=== PATIENT | male | born 1965 | race Caucasian/White ===

== ENCOUNTER 2022-08-19 16:17 | Emergency (ER) | payer SELFPAY ==
[~2022-08-19] VITALS: Ht 185.4 cm; Wt 70.3 kg
--- NOTE | 2022-08-19 16:37 | NUR ---
BIBSELF C/O ABDOMINAL PAIN LLQ RADIATING TO THE MIDDLE FOR 3 DAYS NOW. HISTORY OF KIDNEY STONE 4 MONTHS AGO. PATIENT ALSO STATED THAT HE IS HAVING HEMATURIA. ASSISTED TO ER BED 4 , ATTACHED TO MONITOR. NOTIFIED.
--- NOTE | 2022-08-19 16:38 | NUR ---
URINE SAMPLE OBTAINED SENT TO LAB
[2022-08-19 16:55] LABS: BILIRUBIN,URINE 1+ (NEGATIVE); COLOR,URINE YELLOW (YELLOW); LEUKOCYTE ESTERASE ,URINE NEGATIVE (NEGATIVE); NITRITE, URINE NEGATIVE (NEGATIVE); PROTEIN,URINE TRACE mg/dl (NEGATIVE); UGLUCOSE NEGATIVE (NEGATIVE); UROBILINOGEN,URINE 0.2 EU/dL (0.2)
--- NOTE | 2022-08-19 17:04 | NUR ---
LAC 20 G IV ESTABLISHED. LINE FLUSHED, PT TOLERATED WELL
[2022-08-19] MEDS ORDERED: ONDANSETRON HCL/PF 4 MG/2 ML VIAL ONE (17:07)
[2022-08-19] MEDS ORDERED: MORPHINE SULFATE INJ 4 MG/ML DISP.SYRIN ONE (17:07)
[2022-08-19 17:09] LABS: RBC,URINE 81-100 /HPF (0-2)
[2022-08-19 17:10] LABS: BACTERIA,URINE Moderate /HPF (None Seen); SQUAMOUS EPITHELIAL CELL,UR Few /HPF (None Seen); WBC,URINE 0-2 /HPF (0-3)
[2022-08-19 17:27] LABS: BASOPHILS % (AUTO) 0.1 % (0.0-2.0); EOSINOPHILS % (AUTO) 0.4 % (0.0-6.0); HEMATOCRIT 48 % (39-51); HEMOGLOBIN 15.4 g/dL (13.5-17.5); LYMPHOCYTES # (AUTO) 0.7 K/uL (0.8-4.8); MEAN CORPUSCULAR HGB CONC 32 g/dl (31.0-36.0); MEAN CORPUSCULAR VOLUME 86 fL (80-96); MONOCYTES # (AUTO) 1.6 K/uL (0.1-1.30); MONOCYTES % (AUTO) 13.2 % (2.0-12.0); NEUTROPHILS # (AUTO) 9.7 K/uL (1.8-8.9); NEUTROPHILS % (AUTO) 80.3 % (43.0-81.0); PLATELET COUNT (AUTO) 305 K/uL (150-450); RED BLOOD CELL COUNT(AUTO) 5.58 MIL/uL (4.5-6.0)
[2022-08-19] MEDS ORDERED: IV NS 0.9% 1,000 ML IV ONE (17:30)
[2022-08-19] MEDS ORDERED: ONDANSETRON HCL/PF - ER 4 MG/2 ML VIAL IV ONE (17:30)
[2022-08-19] MEDS ORDERED: MORPHINE SULFATE INJ 2 MG/ML DISP.SYRIN IV ONE (17:30)
[2022-08-19 17:50] LABS: CALCIUM, SERUM 9.1 mg/dL (8.5-10.1); CREATININE 1.5 mg/dL (0.6-1.3)
[2022-08-19 17:57] LABS: ALBUMIN 3.8 g/dL (3.4-5.0); BILIRUBIN,DIRECT 0.2 mg/dL (0.0-0.2); TOTAL PROTEIN, SERUM 7.1 g/dL (6.4-8.2)
[2022-08-19] MEDS ORDERED: KETOROLAC TROMETHAMINE 15 MG/ML VIAL ONE (18:57)
[2022-08-19] MEDS ORDERED: KETOROLAC TROMETHAMINE INJ 30 MG/ML VIAL IV ONE (19:00)
--- NOTE | 2022-08-19 19:25 | NUR ---
Pt is noted alert, responsive as report is received from the off going nurse that pt came from home C/O LLQ Abdominal pain x3days and Hematuria. Pt care continue.
[2022-08-19] MEDS ORDERED: IBUP-1955 PO (19:50)
[2022-08-19] MEDS ORDERED: TAMS-12 PO (19:50)
[2022-08-19] MEDS ORDERED: OXYC-128 PO (19:50)
--- NOTE | 2022-08-19 20:08 | NUR ---
Pt is noted off the unit as he is been diacharge to Home with Discharge instructions given with no S/S off distress or C/O Pain.
[2022-08-19 20:11] VITALS: BP 149/84
== END 2022-08-19 20:12 | disposition home or self-care (01) ==
LOC: ER 16:20
DX: N20.0 Calculus of kidney (principal); R10.32 Left lower quadrant pain; Z79.899 Other long term (current) drug therapy
CPT/HCPCS: 99285; 74176; 96374; 96375; 96361; 85025; 80048; 87086; 83690; 80076; 81001; 36415; J2270; J2405 ×2; J7030; A4223; J1885